=== PATIENT | male | born 1995 | race Caucasian/White ===

== ENCOUNTER 2021-01-13 01:26 | Emergency (ER) | payer OTHER ==
[~2021-01-13] VITALS: Ht 167.6 cm; Wt 81.7 kg
== END 2021-01-13 04:20 | disposition home or self-care (01) ==
LOC: ED 01:26
DX: R10.9 Unspecified abdominal pain (principal); Z20.822 Contact with and (suspected) exposure to COVID-19
CPT/HCPCS: 74177; 80053; 81001; 83690; 83735; 85025; 96375; 96376; 99284-25; C9803; J1170; J2405; J7030; Q9967; U0003

== ENCOUNTER 2021-10-12 20:44 | Emergency (ER) | payer OTHER ==
[~2021-10-12] VITALS: Ht 185.4 cm; Wt 81.7 kg
[2021-10-12] MEDS ORDERED: AMOX TR-K CLV1 EAC1 PO (21:00)
[2021-10-12] MEDS ORDERED: HYDROCODON-ACE1 EA10 PO (21:00)
== END 2021-10-12 21:13 | disposition home or self-care (01) ==
LOC: ED 20:44
DX: L73.9 Follicular disorder, unspecified (principal)
CPT/HCPCS: A9270

== ENCOUNTER 2021-10-28 17:03 | Emergency (ER) | payer OTHER ==
[~2021-10-28] VITALS: Ht 185.4 cm; Wt 86.2 kg
[~2021-10-28 17:03] MED LIST: AMOX TR-K CLV1 EAC1 PO; HYDROCODON-ACE1 EA10 PO
--- OUTSIDE RECORDS SUMMARY | 2021-10-28 17:06 | XMS ---
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 Omi VISIT COUNT (12 MO.) [address] [place] [address] TOTAL 3 NOTE: Visits indicate total known visits. ED/UCC VISIT TRACKING (12 MO.) 10/28/2021 17:03 [facility] TYPE: Emergency COMPLAINT: - BLOOD IN STOOL 10/12/2021 20:45 [facility] TYPE: Emergency COMPLAINT: - SWOLLEN GROIN/ NO INJURY DIAGNOSES: - Follicular disorder, unspecified 01/13/2021 01:27 [facility] TYPE: Emergency COMPLAINT: - RT SIDE ABDOMINAL PAIN DIAGNOSES: - Unspecified abdominal pain INPATIENT VISIT TRACKING (12 MO.) No inpatient visits to display in this time frame [email or web address]
== END 2021-10-28 18:26 | disposition home or self-care (01) ==
LOC: ED 17:03
DX: K64.4 Residual hemorrhoidal skin tags (principal)
CPT/HCPCS: 99282